=== PATIENT | male | born 1995 | race Caucasian/White ===

== ENCOUNTER 2016-03-16 15:23 | Emergency (ER) | payer SELFPAY ==
[~2016-03-16 15:23] MED LIST: NORCO 325 MG-51 TA1 PO; NORCO 325 MG-51 TAB PO; PERCOCET 325 MG1 TA2 PO; ULTRAM50 M1 PO
[2016-03-16] MEDS ORDERED: NORCO 325 MG-51 TA1 PO (16:46)
[2016-04-11] MEDS ORDERED: IBU800 M1 PO (14:47)
== END 2016-03-16 17:08 | disposition home or self-care (01) ==
LOC: ED 15:23
DX: S83.411A Sprain of medial collateral ligament of right knee, initial encounter (principal); Y93.67 Activity, basketball; Y92.830 Public park as the place of occurrence of the external cause

== ENCOUNTER 2016-04-11 14:50 | Emergency (ER) | payer SELFPAY ==
[~2016-04-11 14:50] MED LIST changes: +IBU800 M1 PO
[2016-04-11] MEDS ORDERED: NORCO 325 MG-51 TAB PO (15:12)
== END 2016-04-11 15:27 | disposition home or self-care (01) ==
LOC: ED 14:50
DX: K08.89 Other specified disorders of teeth and supporting structures (principal)

== ENCOUNTER 2016-04-16 16:28 | Emergency (ER) | payer SELFPAY ==
[2016-04-16] MEDS ORDERED: ULTRAM50 M1 PO (17:04)
[2016-04-16] MEDS ORDERED: KETOROLAC10 MG PO (17:04)
[2016-04-16 17:09] VITALS: BP 136/86
== END 2016-04-16 17:12 | disposition home or self-care (01) ==
LOC: ED 16:28
DX: K08.89 Other specified disorders of teeth and supporting structures (principal)

== ENCOUNTER 2016-04-21 11:46 | Emergency (ER) | payer SELFPAY ==
[~2016-04-21 11:46] MED LIST changes: +KETOROLAC10 MG PO
== END 2016-04-21 12:50 | disposition home or self-care (01) ==
LOC: ED 11:46
DX: S89.81XA Other specified injuries of right lower leg, initial encounter (principal); M25.561 Pain in right knee; Y93.9 Activity, unspecified

== ENCOUNTER 2016-06-29 17:57 | Emergency (ER) | payer SELFPAY ==
[2016-06-29] MEDS ORDERED: NORCO 325 MG-51 TA1 PO (18:09)
[2016-06-29] MEDS ORDERED: PERCOCET 325 MG1 TA2 PO (20:29)
[2016-06-29 21:03] VITALS: BP 127/75
== END 2016-06-29 21:03 | disposition home or self-care (01) ==
LOC: ED 17:57
DX: M79.661 Pain in right lower leg (principal); G89.18 Other acute postprocedural pain; Z98.890 Other specified postprocedural states
CPT/HCPCS: J2270

== ENCOUNTER 2016-07-23 17:20 | Emergency (ER) | payer SELFPAY ==
[~2016-07-23] VITALS: Ht 180.3 cm; Wt 109.1 kg
[2016-07-23 18:50] VITALS: BP 128/74
== END 2016-07-23 18:50 | disposition home or self-care (01) ==
LOC: ED 17:20
DX: S83.411A Sprain of medial collateral ligament of right knee, initial encounter (principal); X50.1XXA Overexertion from prolonged static or awkward postures, initial encounter
CPT/HCPCS: J1885

== ENCOUNTER 2016-10-07 22:43 | Emergency (ER) | payer SELFPAY ==
[~2016-10-07] VITALS: Ht 177.8 cm; Wt 109.1 kg
[2016-10-07 23:32] VITALS: BP 138/89
== END 2016-10-07 23:21 | disposition home or self-care (01) ==
LOC: ED 22:43
DX: S83.91XA Sprain of unspecified site of right knee, initial encounter (principal); X50.1XXA Overexertion from prolonged static or awkward postures, initial encounter; Y92.009 Unspecified place in unspecified non-institutional (private) residence as the place of occurrence of the external cause
CPT/HCPCS: L1830

== ENCOUNTER 2016-11-06 15:38 | Emergency (ER) | payer BC ==
[~2016-11-06] VITALS: Ht 177.8 cm; Wt 109.1 kg
[2016-11-06] MEDS ORDERED: AMOXICILLIN AND1 TA2 PO (16:47)
[2016-11-06 16:50] VITALS: BP 148/89
== END 2016-11-06 16:50 | disposition home or self-care (01) ==
LOC: ED 15:38
DX: J02.0 Streptococcal pharyngitis (principal)

== ENCOUNTER 2017-03-23 18:43 | Emergency (ER) | payer BC ==
[~2017-03-23] VITALS: Ht 177.8 cm; Wt 107.3 kg
[~2017-03-23 18:43] MED LIST changes: +AMOXICILLIN AND1 TA2 PO
[2017-03-23 21:04] LABS: HEMOGLOBIN 13.8 g/dL (13.5-18.0); MEAN CELL VOLUME 85 fl (78-100); MEAN CORPUSCULAR HEMOGLOBIN 30 pg (27-31); MEAN CORPUSCULAR HGB CONC 35 g/dL (33-37); MEAN PLATELET VOLUME 9.7 fl (7.4-10.4); PLATELET COUNT 202 K/mm3 (130-400); RED BLOOD COUNT 4.59 M/mm3 (4.20-5.60); RED CELL DISTRIBUTION WIDTH 14.3 % (11.5-14.5); WHITE BLOOD COUNT 8.4 K/mm3 (4.8-10.8)
[2017-03-23 21:17] LABS: ALBUMIN 4.2 g/dL (3.5-5.0); BUN/CREATININE RATIO 13.7 (6.0-26.0); CALCIUM 9.1 mg/dL (8.4-10.2); POTASSIUM 3.7 mmol/L (3.6-5.0); TOTAL BILIRUBIN 1.2 mg/dL (0.2-1.3); TOTAL PROTEIN 7.2 g/dL (6.3-8.2)
[2017-03-23 21:25] LABS: LYMPHOCYTE 8 % (20-51); MONOCYTE 3 % (3-10); NEUTROPHILS 88 % (42-75)
[2017-03-23] MEDS ORDERED: AZITHROMYCIN 250MGPK PO (23:28)
[2017-03-24 00:58] VITALS: BP 107/70
== END 2017-03-24 00:18 | disposition home or self-care (01) ==
LOC: ED 18:43
PROVIDERS: Nurse Practitioner Family
DX: R11.2 Nausea with vomiting, unspecified (principal); R19.7 Diarrhea, unspecified; J20.9 Acute bronchitis, unspecified; F17.210 Nicotine dependence, cigarettes, uncomplicated; Z88.6 Allergy status to analgesic agent; Z88.8 Allergy status to other drugs, medicaments and biological substances
CPT/HCPCS: J1885; J2405; J7030

== ENCOUNTER 2017-07-27 02:54 | Emergency (ER) | payer SELFPAY ==
[~2017-07-27 02:54] MED LIST changes: +AZITHROMYCIN 250MGPK PO
[2017-07-27 03:46] VITALS: BP 161/111
== END 2017-07-27 03:46 | disposition home or self-care (01) ==
LOC: ED 02:54
DX: R06.02 Shortness of breath (principal); F41.9 Anxiety disorder, unspecified; F17.200 Nicotine dependence, unspecified, uncomplicated

== ENCOUNTER 2017-12-15 15:42 | Emergency (ER) | payer SELFPAY ==
[2017-12-15 15:51] VITALS: BP 130/92
[2017-12-15] MEDS ORDERED: AMOXIL500 M1 PO (16:16)
== END 2017-12-15 16:20 | disposition home or self-care (01) ==
LOC: ED 15:42
DX: S01.511A Laceration without foreign body of lip, initial encounter (principal); W51.XXXA Accidental striking against or bumped into by another person, initial encounter; Y93.83 Activity, rough housing and horseplay; F17.200 Nicotine dependence, unspecified, uncomplicated

== ENCOUNTER 2018-02-17 01:11 | Emergency (ER) | payer SELFPAY ==
[~2018-02-17] VITALS: Ht 180.3 cm; Wt 90.9 kg
[~2018-02-17 01:11] MED LIST changes: +AMOXIL500 M1 PO
[2018-02-17] MEDS ORDERED: ZOFRAN4 M2 PO (01:59)
[2018-02-17 02:38] VITALS: BP 117/65
== END 2018-02-17 02:38 | disposition home or self-care (01) ==
LOC: ED 01:11
DX: B34.9 Viral infection, unspecified (principal); F17.200 Nicotine dependence, unspecified, uncomplicated; Z88.8 Allergy status to other drugs, medicaments and biological substances